=== PATIENT | male | born 1950 | race Caucasian/White ===

== ENCOUNTER 2018-05-26 11:05 | Emergency (ER) | payer BC ==
--- NOTE | 2018-05-26 12:06 | UC ---
Skin Complaint HPI - HPI Summary HPI Summary: 68 yo male presents with right middle finger redness, swelling, and pain around nail. He tells me that 3 days ago he developed some mild redness and pain to the area. Since that time has gotten more swollen and pain has increased. Says that he does not bite his nails. Denies fever or chills. - History of Current Complaint Chief Complaint: UCUpperExtremity Time Seen by Provider: 05/26/18 12:06 Stated Complaint: SOFT TISSUE Hx Obtained From: Patient Onset/Duration: Gradual Onset Onset Severity: Mild Current Severity: Moderate Pain Intensity: 5 Pain Scale Used: 0-10 Numeric - Allergy/Home Medications Allergies/Adverse Reactions: Allergies Allergy/AdvReac Type Severity Reaction Status Date / Time No Known Allergies Allergy Verified 05/26/18 11:17 Review of Systems Constitutional: Negative Skin: Other - Right middle finger redness/swelling/pain around nail Respiratory: Negative Cardiovascular: Negative Neurovascular: Negative Neurological: Negative Psychological: Negative All Other Systems Reviewed And Are Negative: Yes PMH/Surg Hx/FS Hx/Imm Hx - Additional Past Medical History Additional PMH: None Previously Healthy: Yes - Surgical History Surgical History: None - Family History Known Family History: Positive: None - Social History Occupation: Retired Lives: With Family Alcohol Use: Daily Substance Use Type: None Smoking Status (MU): Never Smoked Tobacco Physical Exam - Summary Physical Exam Summary: GENERAL: NAD. WDWN. No pain distress. SKIN: Right middle finger. Radial aspect of the nail-skin fold there is moderate erythema and edema with fluctuance. Mild warmth. No streaking, bleeding , or drainage. NECK: Supple. Nontender. No lymphadenopathy. CHEST: No accessory muscle use. Breathing comfortably and in no distress. CV: Pulses intact NEURO: Alert. CN II-XII grossly intact. PSYCH: Age appropriate behavior. Triage Information Reviewed: Yes Vital Signs: Initial Vital Signs Temp 98 F 05/26/18 11:14 Pulse 73 05/26/18 11:14 Resp 15 05/26/18 11:14 Pulse Ox 100 05/26/18 11:14 Vital Signs Reviewed: Yes Course/Dx - Course Course Of Treatment: Right middle finger paronychia. A time out was performed, witnessed, and signed. The area was cleansed with an alcohol pad. A 22G needle was used to nelly the paronychia and copious purulent matter was able to be expressed. The wound was bandaged with a band-aid. Pt tolerated procedure well. - Diagnoses Provider Diagnoses: Right middle finger paronychia Procedures - Incision and Drainage Right Upper Finger Site: Right middle finger paronychia Anesthesia: Other - None Instrument(s): Needle - 22G Packing: Other - None Discharge - Sign-Out/Discharge Documenting (check all that apply): Patient Departure - Discharge Plan Condition: Stable Disposition: HOME Prescriptions: Cephalexin CAP* [Keflex CAP*] 500 mg PO BID #10 cap Patient Education Materials: Paronychia (ED) Referrals: Hermila Courtney MD [Primary Care Provider] - Additional Instructions: If you develop a fever, shortness of breath, chest pain, new or worsening symptoms - please call your PCP or go to the ED. - Billing Disposition and Condition Condition: STABLE Disposition: Home
== END 2018-05-26 12:27 | disposition home or self-care (01) ==
LOC: UCEAST 11:05
DX: L03.011 Cellulitis of right finger (principal)
CPT/HCPCS: 10060; 99212; G0463